=== PATIENT | male | born 1985 | race Caucasian/White ===

== ENCOUNTER → 2017-07-21 | Outpatient (CLI) | payer OTHER ==
--- NOTE | 2017-07-21 08:55 | RADIOLOGY REPORT (SQ) ---
EXAM DESCRIPTION: U/S RETROPERITON (RENAL/AORTA) COMPLETED DATE/TIME: 07/21/2017 8:34 am REASON FOR STUDY: HTN COMPARISON: None. TECHNIQUE: Dynamic and static grayscale images acquired of the kidneys and bladder and recorded on P ACS. Additional selected color Doppler and spectral images recorded. LIMITATIONS: None. FINDINGS: RIGHT KIDNEY: Normal size. Normal echogenicity. No solid or suspicious masses. No hydronep hrosis. No calcifications. LEFT KIDNEY: Normal size. Normal echogenicity. No solid or suspicious masses. Incidental simple homar earing 2 cm cyst in the lower pole. No hydronephrosis. No calcifications. BLADDER: No masses. OTHER FINDINGS: No other significant finding. IMPRESSION: Essentially unremarkable renal-bladder ultrasound. TECHNICAL DOCUMENTATION: JOB ID: [id number] [employer]- All Rights Reserved
--- NOTE | 2017-07-21 08:58 | RADIOLOGY REPORT (SQ) ---
EXAM DESCRIPTION: U/S LTD DUPLEX ART/MANSI FLOW COMPLETED DATE/TIME: 07/21/2017 8:34 am REASON FOR STUDY: HTN COMPARISON: None. EXAM PARAMETERS: TECHNIQUE: Realtime and static grayscale images acquired. Selected color Doppler, v elocities and spectral images recorded. LIMITATIONS: Proximal renal arteries not visualized. FINDINGS: RIGHT KIDNEY: RENAL ARTERY VELOCITIES: 51 cm/sec. Segmental artery velocity 66 cm/sec. VELOCITY RATIO: Point for. Normal waveforms. KIDNEY: Normal size. No significant pathology. LEFT KIDNEY: RENAL ARTERY VELOCITIES: 65 cm/sec. Segmental velocity 55 cm/sec. VELOCITY RATIO: 0.5. Normal waveforms. KIDNEY: Normal size. No significant pathology. BLADDER: Not imaged. OTHER: No other significant finding. IMPRESSION: Limited assessment of the renal arteries, origins not seen. As assessed, no evidence of renal artery stenosis with normal velocities and ratios bilaterally. COMMENT: NORMAL RENAL ARTERY/AORTA VELOCITY RATIO IS LESS THAN OR EQUAL TO 3.5. TECHNICAL DOCUMENTATION: JOB ID: [id number] [employer]- All Rights Reserved
== END ==
LOC: RAD 07:31
PROVIDERS: ATTEND Student in an Organized Health Care Education/Training Program
DX: I70.1 Atherosclerosis of renal artery (principal)
CPT/HCPCS: 76770; 93976